=== PATIENT | female | born 1960 | race Caucasian/White ===

== ENCOUNTER → 2023-08-21 17:44 | Outpatient (REF) | payer OTHER, SELFPAY | LOC: HWRAD 17:44 | PROVIDERS: ATTENDING PHYSICIAN Physical Medicine & Rehabilitation; FAMILY PHYSICIAN Family Medicine | DX: M47.812 Spondylosis without myelopathy or radiculopathy, cervical region (principal) | CPT/HCPCS: 72040 ==

== ENCOUNTER → 2023-09-19 06:49 | Outpatient (REF) | payer OTHER, SELFPAY | LOC: PAVMRI 06:49 | PROVIDERS: ATTENDING PHYSICIAN Physical Medicine & Rehabilitation; FAMILY PHYSICIAN Family Medicine | DX: M54.12 Radiculopathy, cervical region (principal); M54.16 Radiculopathy, lumbar region | CPT/HCPCS: 72141; 72148 ==

== ENCOUNTER → 2023-10-07 10:57 | Outpatient (REF) | payer OTHER, SELFPAY | LOC: RCS 10:57 | PROVIDERS: ATTENDING PHYSICIAN Physical Medicine & Rehabilitation; FAMILY PHYSICIAN Family Medicine | DX: Z01.818 Encounter for other preprocedural examination (principal) | CPT/HCPCS: 93005 ==

== ENCOUNTER → 2024-02-13 10:57 | Outpatient (REF) | payer OTHER, SELFPAY ==
[2024-02-13 12:03] LABS: Blood Urea Nitrogen 15 mg/dl (7-17); Calcium 10.1 mg/dl (8.4-10.2); Carbon Dioxide 26 mmol/L (22-30); Chloride 104 mmol/L (98-107); Glucose 104 mg/dl (70-99); Potassium 4.4 mmol/L (3.5-5.1); Sodium 142 mmol/L (135-145); eGFR > 60.00
== END ==
LOC: REG 10:57
PROVIDERS: ATTENDING PHYSICIAN Physician Assistant Medical
DX: R10.31 Right lower quadrant pain (principal); M54.50 Low back pain, unspecified; R31.29 Other microscopic hematuria
CPT/HCPCS: 36415; 74177; 80048; Q9967

== ENCOUNTER → 2024-03-01 19:36 | Outpatient (REF) | payer OTHER, SELFPAY | LOC: WDC 19:36 | PROVIDERS: ATTENDING PHYSICIAN Nurse Practitioner Family | DX: Z12.31 Encounter for screening mammogram for malignant neoplasm of breast (principal) | CPT/HCPCS: 77063; 77067 ==

== ENCOUNTER → 2024-03-02 07:27 | Outpatient (REF) | payer OTHER, SELFPAY | LOC: RAD 07:27 | PROVIDERS: ATTENDING PHYSICIAN Internal Medicine Critical Care Medicine; FAMILY PHYSICIAN Family Medicine | DX: R93.89 Abnormal findings on diagnostic imaging of other specified body structures (principal) | CPT/HCPCS: 71250 ==

== ENCOUNTER → 2024-07-12 10:06 | Outpatient (REF) | payer OTHER, SELFPAY | LOC: HWRAD 10:06 | PROVIDERS: ATTENDING PHYSICIAN Internal Medicine Gastroenterology; FAMILY PHYSICIAN Family Medicine | DX: K82.4 Cholesterolosis of gallbladder (principal) | CPT/HCPCS: 76700 ==

== ENCOUNTER → 2024-07-16 10:43 | Outpatient (REF) | payer OTHER, SELFPAY | LOC: MRI 3T 10:43 | PROVIDERS: ATTENDING PHYSICIAN Student in an Organized Health Care Education/Training Program; FAMILY PHYSICIAN Family Medicine | DX: M25.552 Pain in left hip (principal) | CPT/HCPCS: 73721 ==

== ENCOUNTER → 2025-03-31 09:54 | Outpatient (REF) | payer OTHER, SELFPAY | LOC: RAD 09:54 | PROVIDERS: ATTENDING PHYSICIAN Internal Medicine Critical Care Medicine; FAMILY PHYSICIAN Family Medicine | DX: R06.02 Shortness of breath (principal) | CPT/HCPCS: 71250 ==